=== PATIENT | female | born 1990 | race Caucasian/White ===

== ENCOUNTER 2017-08-19 07:58 | Emergency (ER) | payer SELFPAY ==
[~2017-08-19] VITALS: Ht 167.6 cm; Wt 116.8 kg
[~2017-08-19 07:58] MED LIST: ADVAIR 250/501 DISK IH; ALBUTEROL SULF8.5 GM IH; NAPROXEN500 MG PO; PREDNISONE20 MG PO; PREDNISONE50 MG PO; PROAIR HFA8.5 GM; SYMBICORT60 INHALAT
[2017-08-19 08:04] VITALS: BP 112/88
== END 2017-08-19 10:24 | disposition home or self-care (01) ==
LOC: EME 07:58
DX: J06.9 Acute upper respiratory infection, unspecified (principal); F17.200 Nicotine dependence, unspecified, uncomplicated
CPT/HCPCS: 87651 90; 99281; 99284

== ENCOUNTER 2017-10-10 22:16 | Inpatient (IN) | payer OTHER ==
[~2017-10-10] VITALS: Ht 167.6 cm; Wt 115.0 kg
[2017-10-11 00:13] VITALS: BP 127/80
[2017-10-11] MEDS ORDERED: FLEXERIL10 MG PO (01:39)
[2017-10-11] MEDS ORDERED: SINGULAIR10 MG PO (01:40)
[2017-10-11] MEDS ORDERED: KLONOPIN0.5 M1 PO (01:41)
[2017-10-11] MEDS ORDERED: LEXAPRO10 MG PO (01:41)
[2017-10-11] MEDS ORDERED: LAMICTAL150 M1 PO (01:42)
[2017-10-11] MEDS ORDERED: MOTRIN600 MG PO (01:43)
[2017-10-11 07:35] VITALS: BP 107/73
[2017-10-11 15:13] VITALS: BP 131/73
[2017-10-12 08:10] VITALS: BP 116/56
[2017-10-12 15:35] VITALS: BP 125/72
[2017-10-13 08:01] VITALS: BP 145/78
[2017-10-13 16:12] VITALS: BP 139/82
[2017-10-14 07:40] VITALS: BP 140/70
[2017-10-14] MEDS ORDERED: LAMICTAL100 MG PO (09:15)
[2017-10-14] MEDS ORDERED: LEXAPRO10 MG PO (09:15)
[2017-10-14] MEDS ORDERED: ARIPIPRAZOLE5 MG PO (09:15)
[2017-10-14] MEDS ORDERED: LAMICTAL25 MG PO (09:15)
== END 2017-10-14 11:53 | disposition home or self-care (01) | DRG 885 ==
LOC: 1WEST 22:16
DX: F31.81 Bipolar II disorder (principal); R45.851 Suicidal ideations; F41.9 Anxiety disorder, unspecified; J45.909 Unspecified asthma, uncomplicated
CPT/HCPCS: 97150 GO; 97165 GO